=== PATIENT | male | born 1950 | race Caucasian/White ===

== ENCOUNTER → 2018-02-25 | Outpatient (CLI) | payer MEDICARE ==
[~2018-02-25] MED LIST: ALLO300T2 PO; AMLO10TA7 PO; CLON0.2T PO; COLC0.6C3 PO; DULO20CA17 PO; DUTA0.5C17 PO; GLIP1TAB6 PO; HYDR-2534 PO; HYDR100T27 PO; IBUP-2071 PO; LORA1TAB3 PO; LOSA100T58 PO; MELO-108 PO; METO-409 PO; MULT-1203 PO; SIMV20TA6 PO; TAMS0.4C32 PO; TRAM50TA4 PO; VITA1CAP85 PO
== END | disposition home or self-care (01) ==
LOC: RAH 10:14
PROVIDERS: ATTEND Neurological Surgery
DX: M47.812 Spondylosis without myelopathy or radiculopathy, cervical region (principal)
CPT/HCPCS: 72040

== ENCOUNTER → 2018-03-01 | Outpatient (CLI) | payer MEDICARE | END | disposition home or self-care (01) | LOC: RAH 16:26 | PROVIDERS: ATTEND Physical Medicine & Rehabilitation | DX: M47.816 Spondylosis without myelopathy or radiculopathy, lumbar region (principal); M41.86 Other forms of scoliosis, lumbar region | CPT/HCPCS: 72100 ==

== ENCOUNTER 2018-09-07 05:41 | Day surgery (SDC) | payer MEDICARE ==
[2018-08-29 10:24] VITALS: BP 122/64
[~2018-09-07] VITALS: Ht 180.3 cm; Wt 110.3 kg
[2018-09-07] VITALS (11 sets, daily range): BP systolic 98–154; BP diastolic 52–81
[~2018-09-07 05:41] MED LIST changes: -DULO20CA17 PO; +TUMERIC PO
[2018-09-07] MEDS ORDERED: SODIUM CHLORIDE 0.9% 1000ML 1,000 ML IV ONE (05:52)
[2018-09-07] MEDS ORDERED: CEFAZOLIN SODIUM 1 GM VIAL ONE (05:52)
[2018-09-07] MEDS ORDERED: MIDAZOLAM HCL 1 MG/ML 2ML VIAL ONE (06:31)
[2018-09-07] MEDS ORDERED: LIDOCAINE PF 2% 5ML ABBOJECT ONE (06:31)
[2018-09-07] MEDS ORDERED: PROPOFOL 10 MG/ML 20ML VIAL IV ONE ×2 (06:31→07:41)
[2018-09-07] MEDS ORDERED: FENTANYL CITRATE PF 50 MCG/1 ML 2ML VIAL ONE (06:31)
[2018-09-07] MEDS ORDERED: KETOROLAC TROMETHAMINE 30MG/ML ONE (06:32)
[2018-09-07] MEDS ORDERED: LIDOCAINE HCL MDV 0.5% 50ML VIAL IJ ONE (06:36)
--- NOTE | 2018-09-07 06:43 | NUR ---
PAIN pt denies pain has numbness and tingling radiates distally down both upper extremities right worse than left for jorge 1 year Addendum: 09/07/18 at 0645 by SHERRELL TORIBIO RN RN Amended: Links added.
[2018-09-07] MEDS ORDERED: EPHEDRINE SULFATE 50 MG/ML AMPULE ONE (07:57)
[2018-09-07] MEDS ORDERED: CEFAZOLIN SODIUM 1 GM VIAL IVP ONE (08:00)
--- NOTE | 2018-09-07 08:50 | NUR ---
ASSESSMENT RECEIVED PT FROM PACU STAFF EULA RN. PT AAOX3. RIGHT HAND DRSG DRY AND INTACT. NO BLEEDING, SWELLING NOTED TO SITE.
--- NOTE | 2018-09-07 09:30 | NUR ---
DISCHARGE ORAL AND WRITTEN DISCHARGE INSTRUCTIONS GIVEN TO PT AND PTS FRIEND. STAPLE REMOVAL KIT GIVEN TO FRIEND TO TAKE TO POST OP APPT. BOTH VERBALIZED UNDERSTANDING.
== END 2018-09-07 09:30 | disposition home or self-care (01) ==
LOC: DAH 05:41
PROVIDERS: ATTEND Neurological Surgery
DX: G56.01 Carpal tunnel syndrome, right upper limb (principal); I10 Essential (primary) hypertension; M19.90 Unspecified osteoarthritis, unspecified site; R20.0 Anesthesia of skin; K21.9 Gastro-esophageal reflux disease without esophagitis; Z79.899 Other long term (current) drug therapy
CPT/HCPCS: 64721; 82948 ×2; 93005; J0690; J1885; J2001; J2250; J2704 ×2; J3010; J3490 ×2; J7030

== ENCOUNTER → 2018-10-07 | Outpatient (CLI) | payer MEDICARE ==
[~2018-10-07] MED LIST changes: -IBUP-2071 PO
== END | disposition home or self-care (01) ==
LOC: RAH 13:34
PROVIDERS: ATTEND Physical Medicine & Rehabilitation
DX: M19.012 Primary osteoarthritis, left shoulder (principal)
CPT/HCPCS: 73030

== ENCOUNTER → 2018-11-09 | Outpatient (CLI) | payer MEDICARE | END | disposition home or self-care (01) | LOC: RAH 13:03 | PROVIDERS: ATTEND Physical Medicine & Rehabilitation | DX: M47.816 Spondylosis without myelopathy or radiculopathy, lumbar region (principal) | CPT/HCPCS: 72148 ==

== ENCOUNTER → 2020-03-04 | Outpatient (CLI) | payer MEDICARE ==
[~2020-03-04] MED LIST changes: +AMLO-258 PO; -AMLO10TA7 PO; -DUTA0.5C17 PO; +DUTA0.5C18 PO; +SIMV-43 PO; -SIMV20TA6 PO
== END | disposition home or self-care (01) ==
LOC: RAH 14:54
PROVIDERS: ATTEND Pain Medicine Interventional Pain Medicine
DX: M47.816 Spondylosis without myelopathy or radiculopathy, lumbar region (principal); M41.86 Other forms of scoliosis, lumbar region
CPT/HCPCS: 72100

== ENCOUNTER → 2021-04-21 | Outpatient (CLI) | payer MEDICARE ==
[~2021-04-21] MED LIST changes: -DUTA0.5C18 PO; +DUTA0.5C37 PO; -HYDR-2534 PO; +HYDR50TA PO
== END | disposition home or self-care (01) ==
LOC: RAH 10:55
PROVIDERS: ATTEND Orthopaedic Surgery
DX: M48.062 Spinal stenosis, lumbar region with neurogenic claudication (principal); M47.816 Spondylosis without myelopathy or radiculopathy, lumbar region; M51.26 Other intervertebral disc displacement, lumbar region
CPT/HCPCS: 72148

== ENCOUNTER → 2022-01-21 | Outpatient (CLI) | payer MEDICARE ==
[2022-01-21 08:34] LABS: BILIRUBIN,DIRECT 0.1 mg/dL (0.0-0.3); TOTAL PROTEIN, SERUM 7.6 g/dL (6.0-8.3)
[2022-01-27 15:13] LABS: ALPHA-1-ANTITRYPSIN 154 mg/dL (101-187)
== END | disposition home or self-care (01) ==
LOC: RAH 07:29
PROVIDERS: ATTEND Internal Medicine Gastroenterology
DX: K76.0 Fatty (change of) liver, not elsewhere classified (principal); R94.5 Abnormal results of liver function studies
CPT/HCPCS: 36415; 76700; 80076; 82103; 82104; 82390; 83516; 86038; 86215; 86235; 86255; 87350

== ENCOUNTER → 2022-04-16 | Outpatient (CLI) | payer OTHER | END | disposition home or self-care (01) | LOC: RAH 13:47 | PROVIDERS: ATTEND Family Medicine Sports Medicine | DX: I08.0 Rheumatic disorders of both mitral and aortic valves (principal); R01.1 Cardiac murmur, unspecified; I10 Essential (primary) hypertension; E78.5 Hyperlipidemia, unspecified; E11.9 Type 2 diabetes mellitus without complications | CPT/HCPCS: 93306 ==

== ENCOUNTER → 2023-01-05 | Outpatient (CLI) | payer OTHER ==
[~2023-01-05] MED LIST changes: -LOSA100T58 PO; +LOSA100T59 PO
== END | disposition home or self-care (01) ==
LOC: CANPRECLI → SHCH 14:12
PROVIDERS: ATTEND Student in an Organized Health Care Education/Training Program
DX: I35.0 Nonrheumatic aortic (valve) stenosis (principal); I11.9 Hypertensive heart disease without heart failure; E11.9 Type 2 diabetes mellitus without complications; E78.5 Hyperlipidemia, unspecified
CPT/HCPCS: 93306

== ENCOUNTER → 2023-09-22 | Outpatient (CLI) | payer OTHER ==
[~2023-09-22] MED LIST changes: +HYDR100T15 PO; -HYDR100T27 PO
== END | disposition home or self-care (01) ==
LOC: SHCH 14:33
PROVIDERS: ATTEND Student in an Organized Health Care Education/Training Program
DX: I35.0 Nonrheumatic aortic (valve) stenosis (principal)
CPT/HCPCS: 93306

== ENCOUNTER → 2023-11-08 | Outpatient (CLI) | payer OTHER ==
[~2023-11-08] MED LIST changes: +IOHEXOL 350 MG/ML 100ML INFUS..BTL IV ONE
== END | disposition home or self-care (01) ==
LOC: RAH 07:08
PROVIDERS: ATTEND Student in an Organized Health Care Education/Training Program
DX: I25.10 Atherosclerotic heart disease of native coronary artery without angina pectoris (principal); I35.0 Nonrheumatic aortic (valve) stenosis
CPT/HCPCS: 74174; 75574; Q9967

== ENCOUNTER 2023-11-19 05:48 | Day surgery (SDC) | payer OTHER ==
[2023-11-17 09:11] VITALS: BP 130/65; PULSE 60; RESP 17; TEMP 98.4
[2023-11-17 09:17] LABS: BASOPHILS # (AUTO) 0.03 K/uL (0.00-0.20); BASOPHILS % (AUTO) 0.4 % (0.0-5.0); EOSINOPHILS # (AUTO) 0.45 K/uL (0.00-0.70); EOSINOPHILS % (AUTO) 6.7 % (0.0-8.0); HEMATOCRIT 47.3 % (42-54); IMMATURE GRANULOCYTE ABSOLUTE 0.01 K/uL (0-1); LYMPHOCYTES # (AUTO) 2.5 K/uL (1.0-4.8); LYMPHOCYTES % (AUTO) 37.8 % (21.0-51.0); MEAN CORPUSCULAR HEMOGLOBIN 31.5 pg (27.0-33.0); MEAN CORPUSCULAR VOLUME 92.6 fL (79-99); MONOCYTES # (AUTO) 0.7 K/uL (0.1-1.0); MONOCYTES % (AUTO) 10.5 % (3.0-13.0); NEUTROPHILS % (AUTO) 44.5 % (40.0-77.0); PLATELET COUNT (AUTO) 162 K/uL (130-400); RED BLOOD CELL COUNT(AUTO) 5.11 MIL/uL (4.50-6.20); RED CELL DISTRIBUTION WIDTH 13.2 % (11.0-15.5); WHITE BLOOD COUNT (AUTO) 6.7 K/uL (4.8-10.8)
[2023-11-17 09:25] LABS: CREATININE 1.2 mg/dL (0.5-1.3); POTASSIUM 4.4 mmol/L (3.5-5.1)
[2023-11-17 09:31] LABS: INR 1.04 (0.85-1.15); PROTHROMBIN TIME 11.2 SEC (9.6-11.6)
[2023-11-17 09:32] LABS: PARTIAL THROMBOPLASTIN TIME 27.9 SEC (26.3-35.5)
[2023-11-17 09:50] LABS: APPEARANCE,URINE CLEAR (CLEAR); BILIRUBIN,URINE NEGATIVE (NEGATIVE); COLOR,URINE YELLOW (YELLOW); GLUCOSE, URINE (UA) NEGATIVE (NEGATIVE); KETONES,URINE NEGATIVE (NEGATIVE); LEUKOCYTE ESTERASE ,URINE NEGATIVE Leu/uL (NEGATIVE); NITRATE,URINE NEGATIVE (NEGATIVE); OCCULT BLOOD,URINE NEGATIVE (NEGATIVE); PH,URINE 5.5 (5.0-8.0); PROTEIN,URINE 20 mg/dL (NEGATIVE); UROBILINOGEN,URINE 0.2 mg/dL (0.2-1.0)
[2023-11-17 09:51] LABS: ADD UA MICROSCOPIC YES
[2023-11-17 09:52] LABS: B-TYPE NATRIURETIC PEPTIDE 18 pg/mL (0-100)
[2023-11-17 09:59] LABS: RBC,URINE 0-1 /HPF (0-1); WBC,URINE 0-1 /HPF (0-1)
[~2023-11-19] VITALS: Ht 180.3 cm; Wt 98.2 kg
[2023-11-19] VITALS (9 sets, daily range): BP systolic 96–137; BP diastolic 51–64; PULSE 48–57; RESP 13–16; TEMP 97.5–97.6
[~2023-11-19 05:48] MED LIST changes: +CLON0.122 PO; +CLON0.1T PO; -CLON0.2T PO; -COLC0.6C3 PO; -DUTA0.5C37 PO; +EMPA10TA PO; -GLIP1TAB6 PO; -HYDR100T15 PO; -IOHEXOL 350 MG/ML 100ML INFUS..BTL IV ONE; -LORA1TAB3 PO; -LOSA100T59 PO; -MELO-108 PO; -MULT-1203 PO; +MVIT PO; +OLME40TA18 PO; +ROSU40TA88 PO; -SIMV-43 PO; +TAMS-1 PO; -TAMS0.4C32 PO; +TIRZ2.5P SQ; -TRAM50TA4 PO; +TRAZ-185 PO; -TUMERIC PO; -VITA1CAP85 PO
[2023-11-19] MEDS ORDERED: IOHEXOL 350 MG/ML 100ML INFUS..BTL IV ONE (07:06)
[2023-11-19] MEDS ORDERED: HEParin 10,000 UNIT/10ML (1,000 UNIT/ML) VIAL ONE (07:06)
[2023-11-19] MEDS ORDERED: LIDOCAINE HCL 400MG/20ML VIAL ONE (07:06)
[2023-11-19] MEDS ORDERED: VERAPAMIL HCL 2.5 MG/ML VIAL ONE (07:06)
[2023-11-19] MEDS ORDERED: NITROGLYCERIN 50MG VIAL ONE (07:07)
[2023-11-19] MEDS ORDERED: HEParin-NS 1,000 UNIT/500 ML 1,000 ML IV ONE (07:07)
[2023-11-19] MEDS ORDERED: FENTanyl CITRate PF 50 MCG/1 ML 2ML VIAL ONE (07:34)
[2023-11-19] MEDS: 0.9%NACL 1000ML 1,000 ML IV ONE (07:34)
[2023-11-19] MEDS ORDERED: MIDAZOLAM HCL 1 MG/ML 2ML VIAL ONE ×2 (07:36→07:42)
[2023-11-19] MEDS ORDERED: cloPIDOgrel 300MG TAB ONE (08:22)
[2023-11-19] MEDS ORDERED: ASPIRIN 325MG EC TAB PO ONE (08:22)
[2023-11-19] MEDS ORDERED: EPTIFIBATIDE 75MG/100ML BOTTLE 100 ML IV ONE (08:23)
[2023-11-19] MEDS ORDERED: EPTIFIBATIDE 2 MG/ML 10 ML VIAL IVP ONE (08:23)
[2023-11-19] MEDS ORDERED: HEParin-NS 1,000 UNIT/500 ML 500 ML IV ONE (08:46)
[2023-11-19] MEDS ORDERED: IOHEXOL-350 75 ML VIAL IV ONE (09:01)
[2023-11-19] MEDS ORDERED: 0.9%NACL 1000ML 1,000 ML IV SCH (09:30)
[2023-11-19] MEDS ORDERED: GLUCAGON 1MG KIT 1 MG ML IM PRN (09:30)
[2023-11-19] MEDS ORDERED: DEXTROSE 50%-WATER 50 ML DISP.SYRIN IV PRN (09:30)
[2023-11-19] MEDS ORDERED: ASPI-1197 PO (12:35)
[2023-11-19] MEDS ORDERED: CLOP-31 PO (12:35)
[2023-11-20] MEDS ORDERED: ASPIRIN 81MG CHEW TAB PO SCH (09:00)
[2023-11-20] MEDS ORDERED: cloPIDOgrel 75MG TAB PO SCH (09:00)
== END 2023-11-19 13:18 | disposition home or self-care (01) ==
LOC: DAH 05:48
PROVIDERS: ATTEND Student in an Organized Health Care Education/Training Program
DX: I35.0 Nonrheumatic aortic (valve) stenosis (principal); I25.118 Atherosclerotic heart disease of native coronary artery with other forms of angina pectoris; I44.7 Left bundle-branch block, unspecified; E78.5 Hyperlipidemia, unspecified; I11.9 Hypertensive heart disease without heart failure; R06.00 Dyspnea, unspecified; E11.9 Type 2 diabetes mellitus without complications; Z98.890 Other specified postprocedural states; Z79.01 Long term (current) use of anticoagulants; Z79.84 Long term (current) use of oral hypoglycemic drugs; Z79.899 Other long term (current) drug therapy
CPT/HCPCS: 80048; 83880; 85025; 85610; 85730; 81001; 36415 ×2; 71045; 93005; 85347 ×2; 82948 ×2; 93460; C9600 ×2; C1894 ×2; C1769 ×3; C1887 ×2; C1725 ×3; C1874 ×4; A4649; J3010; J3490 ×3; J7030; J1644 ×3; J2250 ×2; J1327 ×2; Q9967 ×2; A4215; A6402; A4222; A4221; A4663; A4216; A6206; A4606; Q9965 ×2; A4223 ×3; 99156; 99157

== ENCOUNTER → 2024-02-07 | Outpatient (CLI) | payer OTHER ==
[~2024-02-07] MED LIST changes: +ASPI-1197 PO; +CLOP-31 PO
--- NOTE | 2024-02-10 07:53 | HMCSR ---
APPROVED REPORT Laterality: Bilateral Indications r09.89 Doppler Spectral Velocity Analysis PSV / EDVPSV / EDV ECA (R) 66 / cm/sECA (L) 85 / cm/s dICA (R) 65 / 15 cm/sdICA (L) 49 / 18 cm/s Lit (R) 48 / 15 cm/smICA (L) 60 / 18 cm/s pICA (R) 61 / 18 cm/spICA (L) 56 / 11 cm/s dCCA (R) 57 / 9 cm/sdCCA (L) 62 / 9 cm/s mCCA (R) 61 / 13 cm/smCCA (L) 85 / 19 cm/s pCCA (R) 60 / 13 cm/spCCA (L) 78 / 17 cm/s Vert (R) 27 / cm/sVert (L) 25 / cm/s Subl. (R) 99 / cm/sSubl. (L) 107 / cm/s ICA/CCA 1.07ICA/CCA 0.71 Technologist Impression Mild heterogenous plaque noted in the bilateral carotid bulbs. Bilateral ICAs appear patent, without hemodynamic significance. Bilateral vertebral arteries appear antegrade. Conclusion Mild heterogenous plaque noted in the bilateral carotid bulbs. Bilateral ICAs appear patent, without hemodynamic significance. Bilateral vertebral arteries appear antegrade. Conclusion Mild heterogenous plaque noted in the bilateral carotid bulbs. Bilateral ICAs appear patent, without hemodynamic significance. Bilateral vertebral arteries appear antegrade.
== END | disposition home or self-care (01) ==
LOC: SHCH 10:32
PROVIDERS: ATTEND Internal Medicine Cardiovascular Disease
DX: I65.23 Occlusion and stenosis of bilateral carotid arteries (principal); R09.89 Other specified symptoms and signs involving the circulatory and respiratory systems
CPT/HCPCS: 93880

== ENCOUNTER → 2024-03-23 | Outpatient (CLI) | payer OTHER ==
--- NOTE | 2024-03-27 07:37 | HMCSR ---
APPROVED REPORT EXAM: Two-dimensional and M-mode echocardiogram with Doppler and color Doppler. 2D Dimensions IVSd1.0 (0.7-1.1cm)LVEF(%)60.1 (>50%)LVED Vol(simp.)96.9 mL LVDd4.4 (3.8-5.6cm)FS(%)32 %LVES Vol(simp.)41.4 mL PWd1.2 (0.7-1.1cm)LA (2D)4.3 (1.6-4.0cm)LVEF(%, simp.)57 % IVSs1.0 cmAo Root(2D)2.7 (2.0-3.7cm)LA ESV INDEX (4CH)34.30 mL/m2 LVDs3.0 (2.5-4.0cm)LVOT diam2.4 (1.8-2.4cm)LA ESV INDEX (2CH)30.50 mL/m2 PWs1.6 cmLA ESV INDEX (BP)34.90 mL/m2 Aortic Valve AoV VTI0.5 mAo Mean GR11.0 mmHgLVOT VTI0.22 m ROEL (VMAX)1.9 cm2AVA (VTI) 1.9 cm2 Mitral Valve MV E Vmax86.8 cm/sDECEL Bgde389 ms MV A Ycqe970.1 cm/sP 1/2 T76 ms E/A ratio0.8MVA (PHT)2.9 cm2 MR Max PG64 mmHg TDI E/E' Ogdjxe86.6E/E' Zpuadtn19.7 Medial E' Peak V6.90 cm/sLateral E' Peak V4.40 cm/s Tricuspid Valve TR Vmax2.1 m/s TR Peak GR17.0 mmHg Left Ventricle The left ventricle is normal size. There is normal LV segmental wall motion. There is normal left puja tricular wall thickness. The LVEF is > 55%. No left ventricle thrombus noted on this study. Stage I d iastolic dysfunction. Right Ventricle The right ventricle is normal size. The right ventricular systolic function is normal. Atria The left atrium size is normal. The right atrium size is normal. Aortic Valve TAVR present. No paravalvular/perivalvular leak noted. No aortic regurgitation is present. There is no aortic valvular stenosis. Mitral Valve The mitral valve is normal in structure. There is no mitral valve regurgitation noted. There is no mi tral valve stenosis. Tricuspid Valve The tricuspid valve is normal in structure. There is trace of tricuspid valve regurgitation noted. Pulmonic Valve The pulmonary valve is normal in structure. There is no pulmonic valvular regurgitation. Great Vessels The aortic root is normal in size. The IVC is normal in size and collapses >50% with inspiration. Pericardium There is no pericardial effusion. Conclusion The left ventricle is normal size. The LVEF is > 55%. Stage I diastolic dysfunction. The right ventricle is normal size. The left atrium size is normal. TAVR present. No paravalvular/perivalvular leak noted. No aortic regurgitation is present. There is no aortic valvular stenosis. The mitral valve is normal in structure. There is no mitral valve regurgitation noted. There is no mitral valve stenosis. There is trace of tricuspid valve regurgitation noted. There is no pulmonic valvular regurgitation. The aortic root is normal in size. The IVC is normal in size and collapses >50% with inspiration. There is no pericardial effusion.
== END | disposition home or self-care (01) ==
LOC: RAH 10:30
PROVIDERS: ATTEND Internal Medicine Cardiovascular Disease
DX: I51.89 Other ill-defined heart diseases (principal); I35.0 Nonrheumatic aortic (valve) stenosis; Z95.2 Presence of prosthetic heart valve
CPT/HCPCS: 93306

== ENCOUNTER 2025-01-19 06:09 | Observation (INO) | payer OTHER ==
[2025-01-16 14:39] LABS: IMMATURE GRANULOCYTE ABSOLUTE 0.01 K/uL (0-1); NUCLEATED RED BLOOD CELLS 0.0 % (0.0-0.19); PLATELET COUNT (AUTO) 173 K/uL (130-400); RED BLOOD CELL COUNT(AUTO) 4.93 MIL/uL (4.50-6.20); RED CELL DISTRIBUTION WIDTH 12.8 % (11.0-15.5); WHITE BLOOD COUNT (AUTO) 8.9 K/uL (4.8-10.8)
[2025-01-16 14:43] LABS: APPEARANCE,URINE CLEAR (CLEAR); GLUCOSE, URINE (UA) NEGATIVE (NEGATIVE); LEUKOCYTE ESTERASE ,URINE 75 Leu/uL (NEGATIVE); NITRATE,URINE NEGATIVE (NEGATIVE); OCCULT BLOOD,URINE NEGATIVE (NEGATIVE)
[2025-01-16 14:47] VITALS: BP 138/70; PULSE 68; RESP 18; TEMP 98.6
[2025-01-16 14:49] LABS: CREATININE 1.0 mg/dL (0.5-1.3); GLOMERULAR FILTR. RATE CALC 78.0 mL/min (>90); GLUCOSE,RANDOM 124.0 mg/dL (70-105); INR 1.03 (0.85-1.15); SODIUM SERUM 142.0 mmol/L (136-145); UREA NITROGEN, BLOOD 14.0 mg/dL (7-18)
[2025-01-16 14:49] LABS: ADD UA MICROSCOPIC YES
[2025-01-16 15:09] LABS: SQUAMOUS EPITHELIAL CELL,UR RARE /HPF (0-2)
--- NOTE | 2025-01-16 15:10 | NUR ---
RE: IS INITIAL IS INITIAL TEACHING DONE DURING PREOP BY RT MELANY.
[~2025-01-19] VITALS: Ht 180.3 cm; Wt 94.1 kg
[2025-01-19] VITALS (30 sets, daily range): BP systolic 106–162; BP diastolic 40–78; PULSE 66–93; RESP 12–18; TEMP 97.1–99.2; O2SAT 96–98
[~2025-01-19 06:09] MED LIST changes: +ACET-3305 PO; +AMLO-257 PO; -AMLO-258 PO; -ASPI-1197 PO; +ASPI-1443 PO; -CLON0.122 PO; -CLOP-31 PO; -EMPA10TA PO; -HYDR50TA PO; +IBUP1TAB71 PO; +METO-391 PO; -METO-409 PO; -TAMS-1 PO; +TAMS-55 PO; -TIRZ2.5P SQ; +TIRZ5PEN SQ
[2025-01-19] MEDS ORDERED: MIDAZOLAM HCL 1 MG/ML 2ML VIAL ONE (07:00)
[2025-01-19] MEDS ORDERED: VANCOMYCIN 500MG+NS 100ML 100 ML IV ONE (07:56)
[2025-01-19] MEDS ORDERED: PROMETHAZINE HCL 25 MG/ML 1ML AMPULE IM PRN (08:30)
[2025-01-19] MEDS ORDERED: AMOX1TAB15 PO (08:37)
[2025-01-19] MEDS: 0.9%NACL 1000ML 1,000 ML IV ONE (08:37)
[2025-01-19] MEDS: TRANEXAMIC ACID 1000MG/10ML ONE (09:41)
[2025-01-19] MEDS ORDERED: GLYCOPYRROLATE 0.2 MG/ML 5 ML VIAL ONE (11:10)
[2025-01-19] MEDS ORDERED: NEOSTIGMINE METHYLSULFATE 1MG/ML IV ONE (11:11)
--- NOTE | 2025-01-19 11:23 | OP ---
Operative Note: DATE OF PROCEDURE: 01/19/25 SURGEON: CAROLINE CORNELL MD [place] [facility] DESIGNER: [Sunita Amador [facility]. Rita Moreau [facility]] ANESTHESIA: [General anesthesia plus regional block] ANESTHESIOLOGIST/TELEGRAPH LINEMAN: [Roscoe Rasmussen CRNA] PREOPERATIVE DIAGNOSIS: [Left hip osteoarthritis] POSTOPERATIVE DIAGNOSIS: [Same] IMPLANTS: [[employer]. G7 acetabular cup size 56. G7 high wall liner size F, 36 inner diameter. Taper lock femoral stem size11 X 142 high offset. Modular head component size 36 standard neck] PROCEDURE: [Left total hip arthroplasty] ESTIMATED BLOOD LOSS: [300 mL] INDICATIONS: [75-year-old male with a history of pain to the left hip secondary to osteoarthritis that has developed over the years. The patient is a very active individual that has been treated conservatively but no longer is able to perform his high level of activity. He requested to have a total hip arthroplasty. Procedure understood, risks, benefits and possible complications explained and he agreed to sign the consent form] DESCRIPTION OF PROCEDURE: [After adequate general anesthesia was achieved and regional block obtained the patient was placed in the right lateral decubitus with the use of hip peg holders. The left lower extremity was prepped and draped in the usual manner after x-rays taken with the C-arm were used to check the position of the pelvis. After anatomic landmarks were identified we proceeded to make an incision in the skin centered on the greater trochanter and with a slight curve posteriorly followed by dissection of the subcutaneous tissue with the use of the Bovie cautery. The tensor fascia belkys and gluteus swapna fascia were then opened longitudinally and the fibers of the gluteus muscle were split manually entering into the deep space applying then the Charnley retractor. A bone infusion needle was then inserted in the lateral aspect of the greater trochanter and proceeded then to inject a solution of normal saline 50 mL mixed with 500 mg of vancomycin, removing then the needle. The posterior border of the gluteus medius was identified and elevated and a curved Hohmann retractor was inserted underneath to be able to expose the gluteus minimus and short external rotators. The interval between the piriformis and gluteus minimus was open with the use of the Bovie cautery and then the rotators and capsule were detached from their femoral neck insertion and retracted posteriorly entering into the hip joint. At this point a marker was applied in the iliac bone just superior to the acetabulum with the use of drill guide to be able to check the offset and the length of the extremity at the level of the trochanter. Once the marker was made this was passed to the back table. We then proceeded to dislocate the hip by flexing it and then internally rotating it and after retractors were applied to the base of the femoral neck we proceeded to use the oscillating saw to cut the neck at this level. We proceeded then to bring the hip into extension. Hohmann retractors were then applied anteriorly and posteriorly to the acetabulum removing then the labrum and foveal tissue. We proceeded to ream the acetabulum medializing it obtaining adequate cortico-cancellous bone. After irrigation was of the acetabulum was completed we proceeded then to apply the final component and x- rays were taken correcting the orientation of the acetabulum to its final position. Then a trial liner was inserted and proceeded to bring the hip into flexion and internal rotation to expose the proximal femur using then a box osteotome to enter the canal followed by insertion of the canal finder and then we proceeded to broach from size five up to above-mentioned size. We then proceeded to apply the trial femoral neck and standard head reducing the hip and taken x-rays with the C-arm. we identify the we had the adequate size component using the marker to check the length and offset as well as clinically using the shuck test and measuring the leg length. Once we were satisfied we proceeded to remove the components from the femur and the trial liner after dislocating the hip and after copious irrigation of the joint was completed we then proceeded to apply the final liner followed by the insertion of the final femoral stem and femoral head. Once the hip was reduced we used a marker once again and the leg length and offset were normal and clinically the patient had normal length, negative shuck test and x-rays reveal adequate leg length compared to the opposite hip. The joint was then copiously irrigated with a diluted Betadine solution followed by irrigation with antibiotic solution with jet lavage. A 2nd solution with normal saline and1 g of tranexamic acid was then used to irrigate the joint. The marker was removed and final x-rays were then taken and the wound was then closed, first with approximation of the capsule with #1 Vicryl simple stitches followed by approximation of the short external rotators with #2 PDS suture passing the sutures through the bone. The Charnley retractor was then removed and the gluteus swapna fascia was closed with a #1 Vicryl running stitch and the tensor fascia belkys with #1 Vicryl crossed stitches. The subcutaneous tissue was closed with #2 Monocryl inverted stitches and the skin was closed with 3-0 Monocryl subcuticularly. A suction dressing was then applied to the incision and the drapes were then removed the patient being placed in the supine position. Leg length was checked and noted to be adequate. The patient was then transferred to a hospital bed and taken to recovery room for follow-up by anesthesia. There were no complications during the procedure. ] CAROLINE CORNELL MD Jan 19, 2025 11:23
[2025-01-19] MEDS: 0.9%NACL 1000ML 1,000 ML IV SCH (11:30)
[2025-01-19] MEDS ORDERED: FERROUS FUMARATE 324 MG TABLET PO PRN (11:30)
[2025-01-19] MEDS ORDERED: CALCIUM CARB 500MG PO PRN (11:30)
--- NOTE | 2025-01-19 12:50 | NUR ---
received patient from [facility] at 1250 with 16f francis catheter and on 2L o2, dressing dry and intact with evita drain. Patient made comfortable in bed, educated on IS, patient was able to get to 2000 on IS. Ice pack to left hip. Connected to post op vitals. No new concerns at this time, will continue to monitor
--- NOTE | 2025-01-19 14:15 | NUR ---
ORTHO COORDINATOR: TEACHING REGARDING DVT AND PNEUMONIA PREVENTION, PAIN EXPECTATIONS AND PAIN MANAGEMENT. PATIENT IN BED, SON AT BEDSIDE. B SCD APPLIED AND FUNCTIONING. SANTI DRESSING CLEAN, DRY AND INTACT. SANTI CASSETTE FUNCTIONING. LIGHT FLASHING GREEN. INCENTIVE SPIROMETER AT BEDSIDE. PATIENT RETURN DEMONSTRATED PROPER USE AND VERBALIZED PROPER FREQUENCY OF USE, RATIONALE FOR USE REINFORCED. PATIENT RETURN DEMONSTRATED PROPER FOOT FLEXION AND EXTENSION EXERCISES, RATIONALE PROVIDED. PAIN EXPECTATIONS REALISTIC. PAIN MANAGEMENT STRATEGY REVIEWED. NUMERIC PAIN SCALE REVIEWED. SCHEDULED AND PRN PAIN MEDICATIONS REVIEWED. PATIENT INSTRUCTED TO CALL OUT FOR PRN PAIN MEDICATION AND TO PROVIDE NUMERIC PAIN VALUE AND TYPE OF PAIN. PATIENT INTENDS TO DISCHARGE HOME WITH HOME HEALTH PHYSICAL THERAPY, PROCESS AND EXPECTATIONS REVIEWED. SET EXPECTATION FOR PATIENT TO SHOWER TOMORROW, RATIONALE PROVIDED. PATIENT VERBALIZED UNDERSTANDING TO ALL INSTRUCTIONS. PATIENT REPORTS PASSING GAS, NO BOWEL MOVEMENT. PATIENT CURRENTLY RATES PAIN 6/10, DESCRIBES DULL. PATIENT CONCERNED ABOUT GULCOSE LEVELS, IS ASKING WHEN WAS LAST CHECKED AND CURRENT STATUS. 1420 REPORT TO PRIMARY NURSE REGARDING PAIN AND BLOOD GLUCOSE LEVELS. PRIMARY NURSE ACKNOWLEDGED COMMUNICATION.
[2025-01-19] MEDS ORDERED: METF-444 PO (14:22)
--- NOTE | 2025-01-19 16:57 | NUR ---
DCP CM MET WITH PT THIS AFTERNOON, INITIAL ASSESSMENT DONE. PATIENT IS INDEPENDENT PRIOR TO SURGERY, LIVES AT HOME ALONE, PT VERBALIZED BROTHER CURRENTLY STAYING WITH PT TEMPORARILY TO ASSIST WITH CARE. AT HOME PATIENT HAS A GLUCOMETER, TAKES PO MED FOR DM, BPM. PT VERBALIZED HE HAS A MAID SERVICES ONCE A MONTH TO CLEAN. DENIES ANY OTHER EQUIPMENT/SERVICES. FEELS SAFE TO GO BACK HOME, STILL DRIVE. DISCUSSED MD RECOMMENDATIONS FOR HOME W/HH FOR PT AND WILL ALSO NEED STANDARD WALKER. PT AGREEABLE, CONSENT SIGNED [facility] FOR [facility] IN NETWORK HH ANY IN NETWORK DME. DCP HOME W/HH AND DME ONCE APPROVED. CM TO CONTINUE TO FOLLOW UP.
[2025-01-19] MEDS: ASPIRIN 81 MG EC TAB PO SCH (20:08)
[2025-01-20] VITALS (9 sets, daily range): BP systolic 136–165; BP diastolic 64–85; PULSE 70–86; RESP 12–16; TEMP 97.9–99; O2SAT 97–98
[2025-01-20] MEDS: HYDROcodone/APAP 5/325 1 TAB TABLET PO PRN (08:08)
[2025-01-20] MEDS: amLODIPine 5 MG TAB PO SCH (10:21)
--- NOTE | 2025-01-20 17:04 | NUR ---
CM NOTE: PENDING TO SECURE HH CM RECEIVED RESPONSE FROM [facility], NOT IN NETWORK. CM FORWARDED REQUEST TO [facility], [facility], AND [facility]. PENDING RESPONSE. PT PENDING APPROVAL FOR STANDARD WALKER W/ [facility]. CM PENDING TO SECURE HH PRIOR TO DC. DR CORNELL AWARE. CM TO CONTINUE TO FOLLOW UP.
[2025-01-21] VITALS (8 sets, daily range): BP systolic 103–148; BP diastolic 59–68; PULSE 62–70; RESP 14–19; TEMP 97.8–98.3; O2SAT 96–98
[2025-01-21] MEDS: MULTIVITAMIN TABLET PO SCH (09:22)
--- NOTE | 2025-01-21 15:17 | PN ---
POD # 2.S/P L SUZANNE VSS, afebrile Comfortable. Doing well with PT Dressing intact NV intact. Voiding well A: S/P L SUZANNE P: DC planning, continue PT Vitals/Labs Vital Signs Date Time Temp Pulse Resp B/P (MAP) Pulse Ox O2 Delivery O2 Flow Rate FiO2 01/21/25 12:36 98.2 68 19 126/62 96 Room Air 01/21/25 07:31 0 21 Medications Current Medications Cefazolin Sodium 2 gm STK-MED ONCE .ROUTE Last administered on 01/19/25at 08:45; Start 01/19/25 at 06:26; Stop 01/19/25 at 06:26; Status DC Sodium Chloride 1,000 ml @ As Directed STK-MED ONCE IV Last administered on 01/19/25at 08:37; Start 01/19/25 at 06:26; Stop 01/19/25 at 06:26; Status DC Propofol 200 mg STK-MED ONCE IV; Start 01/19/25 at 07:00; Stop 01/19/25 at 07:00; Status DC Midazolam HCl 2 mg STK-MED ONCE .ROUTE; Start 01/19/25 at 07:00; Stop 01/19/25 at 07:00; Status DC Fentanyl Citrate 100 mcg STK-MED ONCE .ROUTE; Start 01/19/25 at 07:00; Stop 01/19/25 at 07:01; Status DC Acetaminophen 100 ml @ As Directed STK-MED ONCE .ROUTE; Start 01/19/25 at 07:15; Stop 01/19/25 at 07:15; Status DC Rocuronium [place] 50 mg STK-MED ONCE .ROUTE; Start 01/19/25 at 07:21; Stop 01/19/25 at 07:21; Status DC Phenylephrine HCl 10 mg STK-MED ONCE IV; Start 01/19/25 at 07:27; Stop 01/19/25 at 07:27; Status DC Fentanyl Citrate 100 mcg STK-MED ONCE .ROUTE; Start 01/19/25 at 07:48; Stop 01/19/25 at 07:49; Status DC Tranexamic Acid 1,000 mg STK-MED ONCE .ROUTE Last administered on 01/19/25at 09:41; Start 01/19/25 at 07:55; Stop 01/19/25 at 07:55; Status DC Vancomycin HCl 100 ml @ As Directed STK-MED ONCE IV; Start 01/19/25 at 07:56; Stop 01/19/25 at 07:56; Status DC Ondansetron HCl 4 mg AD PRN IVP; Start 01/19/25 at 08:30; Stop 01/19/25 at 12:36; Status DC Metoclopramide HCl 10 mg AD PRN IVP; Start 01/19/25 at 08:30; Stop 01/19/25 at 12:36; Status DC Promethazine HCl 25 mg AD PRN IM; Start 01/19/25 at 08:30; Stop 01/19/25 at 12:36; Status DC Ketorolac Tromethamine 30 mg AD PRN IV Last administered on 01/19/25at 12:08; Start 01/19/25 at 08:30; Stop 01/19/25 at 12:08; Status DC Morphine Sulfate 2 mg AD PRN IVP Last administered on 01/19/25at 12:19; Start 01/19/25 at 08:30; Stop 01/19/25 at 12:36; Status DC Fentanyl Citrate 25 mcg Q5MIN PRN IVP Last administered on 01/19/25at 11:48; Start 01/19/25 at 08:30; Stop 01/19/25 at 12:36; Status DC Naloxone HCl 0.1 mg AD PRN IVP; Start 01/19/25 at 08:30; Stop 01/19/25 at 12:36; Status DC Cefazolin Sodium 1 gm STK-MED ONCE .ROUTE Last administered on 01/19/25at 09:40; Start 01/19/25 at 08:10; Stop 01/19/25 at 08:10; Status DC Glycopyrrolate 1 mg STK-MED ONCE .ROUTE; Start 01/19/25 at 11:10; Stop 01/19/25 at 11:11; Status DC Neostigmine Methylsulfate 10 mg STK-MED ONCE IV; Start 01/19/25 at 11:11; Stop 01/19/25 at 11:11; Status DC Sodium Chloride 1,000 ml @ 100 mls/hr Q10H IV; Start 01/19/25 at 11:30; Stop 01/20/25 at 11:29; Status DC Polyethylene Glycol 17 gm DAILY PO Last administered on 01/21/25at 09:25; Start 01/20/25 at 09:00; Stop 02/19/25 at 08:59 Bisacodyl 10 mg DAILY PRN RC; Start 01/22/25 at 11:30; Stop 02/21/25 at 11:29 Ketorolac Tromethamine 15 mg Q6H PRN IV; Start 01/19/25 at 11:30; Stop 01/24/25 at 11:29 Ferrous Fumarate 324 mg DAILY PRN PO; Start 01/19/25 at 11:30; Stop 02/18/25 at 11:29 Temazepam 15 mg HS PRN PO Last administered on 01/19/25at 23:48; Start 01/19/25 at 11:30; Stop 02/18/25 at 11:29 Calcium Carbonate 500 mg Q12H PRN PO; Start 01/19/25 at 11:30; Stop 02/18/25 at 11:29 Diphenhydramine HCl 25 mg Q6H PRN IVP; Start 01/19/25 at 11:30; Stop 02/18/25 at 11:29 Ondansetron HCl 4 mg Q6H PRN IVP; Start 01/19/25 at 11:30; Stop 02/18/25 at 11:29 Cefazolin Sodium 2 gm Q8H IVP Last administered on 01/20/25at 00:21; Start 01/08 04/04 at 16:30; Stop 01/20/25 at 00:31; Status DC Ketorolac Tromethamine 15 mg Q8H IV Last administered on 01/20/25at 03:40; S tart 01/19/25 at 11:30; Stop 01/20/25 at 03:31; Status DC Acetaminophen/ Hydrocodone Bitart Q4H PRN PO Last administered on 01/21/25at 13:45; Start 01/19/25 at 11:30; Stop 01/24/25 at 11:29 Aspirin 81 mg BID PO Last administered on 01/21/25at 09:22; Start 01/19/25 at 21:00; Stop 02/18/25 at 20:59 Ropivacaine 150 mg STK-MED ONCE .ROUTE; Start 01/19/25 at 11:17; Stop 01/19/25 at 11:17; Status DC Fentanyl Citrate 100 mcg STK-MED ONCE .ROUTE; Start 01/19/25 at 11:17; Stop 01/19/25 at 11:17; Status DC Fentanyl Citrate 100 mcg STK-MED ONCE .ROUTE; Start 01/19/25 at 11:46; Stop 01/19/25 at 11:46; Status DC Ketorolac Tromethamine 15 mg STK-MED ONCE .ROUTE; Start 01/19/25 at 12:05; Stop 01/19/25 at 12:05; Status DC Morphine Sulfate 2 mg STK-MED ONCE .ROUTE; Start 01/19/25 at 12:16; Stop 01/19/25 at 12:17; Status DC Insulin Human Regular INSULIN SLIDING SCAL... ACHS SQ Last administered on 01/20/25at 20:55; Start 01/19/25 at 16:30; Stop 02/18/25 at 16:29 Metformin HCl 500 mg BIDMEALS PO Last administered on 01/21/25at 09:24; Start 01/19/25 at 17:00; Stop 02/18/25 at 16:59 Allopurinol 300 mg DAILY PO Last administered on 01/21/25at 09:22; Start 01/20/25 at 09:00; Stop 02/19/25 at 08:59 Amlodipine Besylate 5 mg DAILY PO Last administered on 01/21/25at 09:22; Start 01/20/25 at 09:00; Stop 02/19/25 at 08:59 Losartan Potassium 100 mg DAILY PO Last administered on 01/21/25at 09:22; Start 01/20/25 at 09:00; Stop 02/19/25 at 08:59 Clonidine HCl 0.1 mg HS PO Last administered on 01/20/25at 20:49; Start 01/20/25 at 21:00; Stop 02/19/25 at 20:59 Metoprolol Succinate 50 mg HS PO Last administered on 01/20/25at 20:50; Start 01/20/25 at 21:00; Stop 02/19/25 at 20:59 Multivitamins Therapeutic 1 tab DAILY PO Last administered on 01/21/25at 09:22; Start 01/21/25 at 09:00; Stop 02/20/25 at 08:59 Tamsulosin HCl 0.4 mg HS PO Last administered on 01/20/25at 20:50; Start 01/20/25 at 21:00; Stop 02/19/25 at 20:59 Trazodone HCl 50 mg HS PO Last administered on 01/20/25at 20:50; Start 01/20/25 at 21:00; Stop 02/19/25 at 20:59 Atorvastatin Calcium 40 mg HS PO Last administered on 01/20/25at 20:50; Start 01/20/25 at 21:00; Stop 02/19/25 at 20:59 CAROLINE CORNELL MD Jan 21, 2025 15:17
[2025-01-22 00:22] VITALS: BP 141/67; PULSE 67; RESP 14; TEMP 98.1
[2025-01-22 04:22] VITALS: BP 112/66; PULSE 65; RESP 14; TEMP 97.9
[2025-01-22 08:00] VITALS: O2SAT 97
[2025-01-22 08:03] VITALS: BP 129/62; PULSE 64; RESP 18; TEMP 98.9
--- NOTE | 2025-01-22 09:22 | DS ---
[Date of admission: 01/19/2025 Date of discharge: 01/23/2020 Final diagnosis: Left hip osteoarthritis Surgical procedures: Left total hip arthroplasty on 01/19/2025 Summary of History and Physical: The patient is a 75 year-old male with history of severe arthrosis to the the hip that has been present for several years and has been treated conservatively with no longer adequate response to treatment. The patient is being admitted for total hip arthroplasty. Previous medical history: Hypertension, hypercholesterolemia, BPH, gout, diabetes, arthritis, heart disease Previous surgical history: Heart valve replacement, right rotator cuff repair Family history: Cancer, osteoarthritis Social history: Negative for use of tobacco or alcohol. Allergies: NKDA. Review of system: Negative on admission Hospital course: The patient was admitted and taken to the operating room for a total hip arthroplasty, procedure that went uneventful. Postoperatively the patient remained hemodynamically stable and afebrile. The patient received antibiotic and anticoagulation prophylaxis as per protocol. The patient was misbah luated by physical therapy and started rehabilitation treatment with ambulation with the use of walker, weightbearing as tolerated, hip precautions, range of motion exercises and bed transfers. The patient was also evaluated by case management and arrangements were made for discharge . The patient tolerated diet well. On postop day #3 all the arrangements were completed, and the patient was dismissed . Condition on discharge: Good Disposition: The patient will be dismissed home with home health. Follow-up will be done at the office in 3 weeks. The patient is to continue with physical therapy and rehabilitation at home and be ambulatory with the use of a walker, weightbearing as tolerated and continue with hip precautions. Continue taking pain medication as instructed as well as anticoagulation prophylaxis. Continue with home medications also as instructed and continue with pre admission diet.] CAROLINE CORNELL MD Jan 22, 2025 09:22
[2025-01-22 12:02] VITALS: BP 130/54; PULSE 67; RESP 18; TEMP 98.7
[2025-01-22] MEDS ORDERED: HYDR-4060 PO (13:24)
[2025-01-22] MEDS ORDERED: ASPI-1443 PO (13:24)
--- NOTE | 2025-01-22 14:08 | HMCIMG ---
Fluoroscopy is utilized for the procedure. The total fluoroscopy time is 00:15.2 (mm:ss.d). The total dose area product is 1.0072 (Gycm2). The interpreting radiologist was not present during the procedure. /[place]
--- NOTE | 2025-01-22 15:40 | NUR ---
PT REFUSES LAXATIVES BEFORE DC HOME. STATES "I DONT WANT TO EXPLODE ON THE WAY HOME". HE VERBALIZED HE HAS HIS OWN LAXATIVES AT HOME AND WILL TAKE IT WHEN HE GETS THERE. REFUSAL FOR LAXATIVES SIGNED BY PT, PLACED IN CHART. CHARGE NURSE MADE AWARE.
--- NOTE | 2025-01-22 15:52 | NUR ---
DC: PT DC'D HOME PER MD ORDER. PT WAS GIVEN DC INSTRUCTIONS ON HOW TO SHOWER WITH DRESSING AND THE USE OF HIS IS. PT VERBALIZED UNDERSTANDING. PT WAS ALSO EDUCATED ON THE IMPORTANCE OF MONITORING HIS BM'S WHILE ON PAIN MEDICATIONS. PT STATED UNDERSTANDING. IV REMOVED TIP INTACT. SANTI DRESSING CLEAN, DRY AND INTACT. SANTI CASSETTE FUNCTIONING. LIGHT FLASHING GREEN. PT DC'D WITH [facility] AND STATED WOULD BRING IT BACK WHEN HE RECEIVED HIS DIRECTED PER CM. RX SENT TO PT PHARMACY OF CHOICE. 01/23 09 REPORT CALLED TO FLORINA STOKES AT [facility] [phone].
== END 2025-01-22 16:15 | disposition home health service (06) ==
LOC: DAH 06:09 → DAHIP 11:03 → 4CH 12:45
PROVIDERS: ADMIT Orthopaedic Surgery; ATTEND Orthopaedic Surgery
DX: M16.12 Unilateral primary osteoarthritis, left hip (principal); M25.552 Pain in left hip; I10 Essential (primary) hypertension; E78.00 Pure hypercholesterolemia, unspecified; E11.9 Type 2 diabetes mellitus without complications; N40.0 Benign prostatic hyperplasia without lower urinary tract symptoms; Z79.899 Other long term (current) drug therapy; Z98.890 Other specified postprocedural states
CPT/HCPCS: 80048; 85025; 85610; 87086; 81001; 36415 ×2; 87641; 27130; 96374; 96375; 64415; 86850; 86900; 86901; 82948 ×14; 88311; 88304; 73503; 97161; 97116 ×7; 97530 ×8; 96376; J1815 ×6; G0378 ×77; A4600; A4223 ×2; C1713; A4663; J3010 ×4; J0690 ×4; J3490 ×3; J2270; J7030; J2250; J2704; J2710; J2795; J1885 ×3; J2371; J3373; A4649 ×3; A9272; A4930; C1776; A4215; A4213; A4222; A4221; A4216; 76000